=== PATIENT | male | born 1935 | race African-American/Black ===

== ENCOUNTER 2017-01-14 03:42 | Inpatient (IN) | payer MEDICARE, OTHER ==
[2017-01-14] VITALS (18 sets, daily range): BP systolic 75–132; BP diastolic 32–82
[~2017-01-14] VITALS: Ht 177.8 cm; Wt 63.5 kg
[~2017-01-14 03:42] MED LIST: ATIVAN1 MG ORAL; CEFEPIME-D1 GM/50 ML IVPB; CEFTRIAXON1 GM/50 ML IV; CEFTRIAXONE1 G2 IVPB; CLONIDINE HCL0.1 MG PO; CLONIDINE0.1 MG ORAL; DEPAKOTE ER500 MG ORAL; DEPAKOTE250 MG PO; HALOPERIDOL0.5 MG ORAL; HALOPERIDOL1 MG ORAL; HEPARIN1000 UNIT/ SCONJUNC; LEVEMIR FL100 UNIT/1 SUBQ; LEVOFLOXACIN500 MG ORAL; LISINOPRIL5 MG ORAL; LORAZEPAM2 MG/1 M3 IV; LOVENOX10 M4 SUBQ; MIRTAZAPINE7.5 MG ORAL; NAMENDA10 MG ORAL; NORVASC10 MG ORAL; NOVOLIN R100 UNIT/1 SUBQ; PROTONIX40 MG ORAL; TYLENOL650 MG/20. ORAL
--- NOTE | 2017-01-14 03:46 | Emergency Room Report ---
History of Present Illness General Source: Medical Record, EMS Present Illness HPI Patient is an 81-year-old male brought in by EMS after increased difficulty breathing. Patient was noted to have prior history dementia. The patient was noted be full code. He had been noted to be having a low oxygen saturation by facility staff. Patient had been started on supplemental oxygen. Patient was noted to have no prior history of lung problems. His blood sugar was noted to be greater than 260. The patient is normally nonverbal per staff. History is markedly limited by patient's mental status Allergies: Coded Allergies: No Known Allergies (Unverified , 09/13/14) Patient History Past Medical History: see triage record, old chart reviewed Reviewed Nursing Documentation: PMH: Agreed, PSxH: Agreed Nursing Documentation-PMH Hx Cardiac Problems: Yes Hx Hypertension: Yes Hx Pacemaker: Yes - left chest Hx COPD: Yes Hx Diabetes: Yes Hx Cancer: No Hx Gastrointestinal Problems: Yes - Gallstones Hx Neurological Problems: Yes Hx Dementia: Yes Hx Seizures: No - UTI Hx Weakness: Yes Review of Systems All Other Systems: negative except mentioned in HPI Physical Exam Sp02 EP Interpretation: reviewed, normal General Appearance: normal inspection, well appearing, no apparent distress, alert, GCS 15 Head: atraumatic ENT: normal ENT inspection, hearing grossly normal, normal voice Neck: normal inspection, full range of motion, supple, no bony tend Respiratory: normal inspection, lungs clear, normal breath sounds, no respiratory distress, no retraction, no wheezing Cardiovascular #1: regular rate, rhythm, no edema Gastrointestinal: normal inspection, normal bowel sounds, non tender, soft, no guarding, no hernia Genitourinary: no CVA tenderness Musculoskeletal: normal inspection, back normal, normal range of motion Neurologic: normal inspection, alert, responsive, other - nonverbal Psychiatric: mood/affect normal Skin: no rash Procedures Critical Care Time Critical Care Time Patient had a critical medical condition which untreated could potentially result in life or limb threatening injury. Total critical care time excluding procedures approximately 45 minutes. Medical Decision Making Diagnostic Impression: Primary Impression: Severe sepsis Additional Impressions: Pneumonia Dementia Hypernatremia ER Course Patient presented for shortness of breath. Differential included but was not limited to anemia, pneumonia, pneumothorax, myocardial infarction, pericardial effusion, congestive heart failure, acidosis. Because of complexity of patient' s case laboratory testing and imaging studies were ordered.I laboratory testing was notable for initial normal white blood count. Patient's lactic acid level is noted be markedly elevated at 6. The patient's initial troponin was negative. I EKG and rhythm me showed sinus tachycardia with left bundle branch block. Patient was noted to have evidence of sepsis he has 103 temperature. Influenza study was ordered however this is currently pending. Patient started on IV fluids as well as IV antibiotics. Dr. Maik Cannon was contacted for inpatient management Labs Test 01/14/17 03:46 01/14/17 04:05 01/14/17 04:06 01/14/17 06:13 Arterial Blood pH 7.451 (7.350-7.450) Arterial Blood Partial Pressure CO2 24.7 mmHg (35.0-45.0) Arterial Blood Partial Pressure O2 94.7 mmHg (75.0-100.0) Arterial Blood HCO3 16.8 mmol/L (22.0-26.0) Arterial Blood Oxygen Saturation 96.2 % (92.0-98.0) Arterial Blood Base Excess -5.9 Jose David Test Positive Urine Color Ryann Urine Appearance Clear Urine pH 5 (4.5-8.0) Urine Specific [place] 1.020 (1.005-1.035) Urine Protein 1+ (NEGATIVE) Urine Glucose (UA) Negative (NEGATIVE) Urine Ketones Negative (NEGATIVE) Urine Occult Blood Negative (NEGATIVE) Urine Nitrite Negative (NEGATIVE) Urine Bilirubin Negative (NEGATIVE) Urine Ictotest Negative Urine Urobilinogen Normal MG/DL (0.0-1.0) Urine Leukocyte Esterase Negative (NEGATIVE) Urine RBC 0-2 /HPF (0 - 0) Urine WBC 0-2 /HPF (0 - 0) Urine Squamous Epithelial Cells Occasional /LPF Urine Bacteria None /HPF (NONE) Urine Hyaline Casts 5-10 /LPF (NONE) Urine Mucus Moderate /LPF (NONE/OCC) White Blood Count 6.4 K/UL (4.8-10.8) Red Blood Count 4.12 M/UL (4.70-6.10) Hemoglobin 10.4 G/DL (14.2-18.0) Hematocrit 34.5 % (42.0-52.0) Mean Corpuscular Volume 84 FL (80-99) Mean Corpuscular Hemoglobin 25.3 PG (27.0-31.0) Mean Corpuscular Hemoglobin Concent 30.2 G/DL (32.0-36.0) Red Cell Distribution Width 15.7 % (11.6-14.8) Platelet Count 262 K/UL (150-450) Mean Platelet Volume 10.1 FL (6.5-10.1) Neutrophils (%) (Auto) 80.1 % (45.0-75.0) Lymphocytes (%) (Auto) 15.2 % (20.0-45.0) Monocytes (%) (Auto) 4.3 % (1.0-10.0) Eosinophils (%) (Auto) 0.1 % (0.0-3.0) Basophils (%) (Auto) 0.4 % (0.0-2.0) Prothrombin Time 11.5 SEC (9.30-11.50) Prothromb Time International Ratio 1.1 (0.9-1.1) Activated Partial Thromboplast Time 25 SEC (23-33) Sodium Level 167 MMOL/L (136-145) Potassium Level 4.6 MMOL/L (3.5-5.1) Chloride Level 128 MMOL/L (98-107) Carbon Dioxide Level 22 MMOL/L (21-32) Anion Gap 17 mmol/L (5-15) Blood Urea Nitrogen 64 mg/dL (7-18) Creatinine 2.4 MG/DL (0.55-1.30) Estimat Glomerular Filtration Rate mL/min (>60) Glucose Level 159 MG/DL (74-106) Calcium Level 9.3 MG/DL (8.5-10.1) Total Bilirubin 0.3 MG/DL (0.2-1.0) Aspartate Amino Transf (AST/SGOT) 95 U/L (15-37) Alanine Aminotransferase (ALT/SGPT) 30 U/L (12-78) Alkaline Phosphatase 81 U/L (46-116) Total Creatine Kinase 390 U/L (26-308) Creatine Kinase MB 1.3 NG/ML (0.0-3.6) Creatine Kinase MB Relative Index 0.3 Troponin I 0.070 ng/mL (0.000-0.056) Pro-B-Type Natriuretic Peptide 1772 pg/mL (0-125) Total Protein 7.7 G/DL (6.4-8.2) Albumin 2.2 G/DL (3.4-5.0) Globulin 5.5 g/dL Albumin/Globulin Ratio 0.4 (1.0-2.7) Lactic Acid Level 3.00 mmol/L (0.66-2.22) Status: unchanged Disposition: ADMITTED INPATIENT Condition: Critical NachoRobert Jan 14, 2017 03:46
[2017-01-14] MEDS ORDERED: Vancomycin 1gm inj IVPB ONE (03:54)
[2017-01-14] MEDS ORDERED: Cefepime 1gm vial ONE (03:55)
[2017-01-14] MEDS ORDERED: Vancomycin 1 GM in NS 275 ML IV ONE (04:00)
[2017-01-14] MEDS: Cefepime HCl 1 GM in NS 55 ML IV SCH ×2 (04:17→04:49)
[2017-01-14 04:23] LABS: BASOPHILS % (AUTO) 0.4 % (0.0-2.0); EOSINOPHILS % (AUTO) 0.1 % (0.0-3.0); LYMPHOCYTES % (AUTO) 15.2 % (20.0-45.0); MEAN CORPUSCULAR HEMOGLOBIN 25.3 PG (27.0-31.0); MEAN CORPUSCULAR HGB CONC 30.2 G/DL (32.0-36.0); MEAN CORPUSCULAR VOLUME 84 FL (80-99); MEAN PLATELET VOLUME 10.1 FL (6.5-10.1); MONOCYTES % (AUTO) 4.3 % (1.0-10.0); NEUTROPHILS % (AUTO) 80.1 % (45.0-75.0); PLATELET COUNT 262 K/UL (150-450); RED BLOOD COUNT 4.12 M/UL (4.70-6.10); RED CELL DISTRIBUTION WIDTH 15.7 % (11.6-14.8); WHITE BLOOD COUNT 6.4 K/UL (4.8-10.8)
[2017-01-14 04:38] LABS: ABG PCO2 24.7 mmHg (35.0-45.0)
[2017-01-14 04:39] LABS: ABG ALLEN TEST POSITIVE; ABG BASE EXCESS -5.9
[2017-01-14 04:52] LABS: INR 1.1 (0.9-1.1); PROTHROMBIN TIME 11.5 SEC (9.30-11.50)
[2017-01-14 05:00] LABS: ALANINE AMINOTRANSFERASE 30 U/L (12-78); ALBUMIN/GLOBULIN RATIO 0.4 (1.0-2.7); ANION GAP 17 mmol/L (5-15); ASPARTATE AMINO TRANSFERASE 95 U/L (15-37); CALCIUM 9.3 MG/DL (8.5-10.1); CARBON DIOXIDE 22 MMOL/L (21-32); CHLORIDE 128 MMOL/L (98-107); CKMB 1.3 NG/ML (0.0-3.6); CREATININE 2.4 MG/DL (0.55-1.30); POTASSIUM 4.6 MMOL/L (3.5-5.1); TOTAL PROTEIN 7.7 G/DL (6.4-8.2)
[2017-01-14 05:04] LABS: SODIUM 167 MMOL/L (136-145)
[2017-01-14 05:18] LABS: REFLEX LACTIC ACID YES OR NO YES
[2017-01-14] MEDS ORDERED: Acetaminophen 650 MG SUPP RECTAL ONE (05:30)
[2017-01-14 05:37] LABS: APPEARANCE,URINE CLEAR; KETONES,URINE NEGATIVE (NEGATIVE); LEUKOCYTE ESTERASE ,URINE NEGATIVE (NEGATIVE); NITRITE,URINE NEGATIVE (NEGATIVE); PH,URINE 5 (4.5-8.0); PROTEIN,URINE 1+ (NEGATIVE); UROBILINOGEN,URINE NORMAL MG/DL (0.0-1.0)
[2017-01-14 05:43] LABS: ICTOTEST NEGATIVE
[2017-01-14 05:55] LABS: RBC,URINE 0-2 /HPF (0 - 0); SQUAMOUS EPITHELIAL CELL,UR OCCASIONAL /LPF (NONE/OCC); WBC,URINE 0-2 /HPF (0 - 0)
[2017-01-14 05:56] LABS: MUCUS,URINE MODERATE /LPF (NONE/OCC)
[2017-01-14] MEDS ORDERED: TRADJENTA5 MG PO (08:07)
[2017-01-14] MEDS ORDERED: OMEPRAZOLE40 M1 ORAL (08:07)
[2017-01-14] MEDS ORDERED: MULTIVITAMINS1 EAC8 ORAL (08:07)
[2017-01-14] MEDS ORDERED: PRO-STAT LIQUID30 ML ORAL (08:07)
[2017-01-14] MEDS ORDERED: TYLENOL PO (08:07)
[2017-01-14] MEDS ORDERED: [UNRECOGNIZED DRUG - OTHER] (08:07)
[2017-01-14] MEDS ORDERED: FLUOCINONIDE 0.1% TOPIC (08:09)
--- NOTE | 2017-01-14 10:05 | Diagnostic Imaging Report ---
Indication: SOB Technique: One view of the chest Comparison: 09/13/2014 Findings: There is now patchy infiltrate throughout the right lung. Band of atelectasis or scarring is seen in the left lower lung. Left chest pacemaker again demonstrated. Heart size is normal Impression: Bilateral diffuse patchy interstitial and alveolar infiltrate versus edema Left basilar atelectasis Other findings as noted
[2017-01-14] MEDS ORDERED: Acetaminophen 650mg/20.3ml ORAL PRN (11:00)
[2017-01-14 11:44] LABS: PHOSPHORUS 3.2 MG/DL (2.5-4.9)
[2017-01-14 11:53] LABS: HEMOGLOBIN A1C 8.4 % (4.3-6.0)
--- NOTE | 2017-01-14 15:31 | Cardiac Electrophysiology PN ---
Subjective Subjective [id number] Troponin leak,Pacer, HTN, LBBB, Renal failure, Resp failure Objective Last 24 Hour Vital Signs Date Time Temp Pulse Resp B/P (MAP) Pulse Ox O2 Delivery O2 Flow Rate FiO2 01/14/17 15:12 72 18 99 01/14/17 15:00 60 16 112/47 100 Nasal Cannula 2.0 01/14/17 14:00 60 16 93/34 100 Nasal Cannula 2.0 01/14/17 13:00 61 16 99/32 100 Nasal Cannula 2.0 01/14/17 12:48 78 18 99 01/14/17 12:00 61 01/14/17 12:00 98.7 63 16 118/36 100 Nasal Cannula 2.0 01/14/17 11:00 62 16 118/43 100 Nasal Cannula 2.0 01/14/17 10:30 75 18 99 01/14/17 10:00 61 16 91/40 100 Nasal Cannula 2.0 01/14/17 09:00 66 16 112/43 97 Nasal Cannula 2.0 01/14/17 08:30 81 18 98 01/14/17 08:20 98.8 66 16 101/48 97 Nasal Cannula 2.0 01/14/17 08:00 65 01/14/17 07:32 74 21 129/46 99 Bi-pap 40 01/14/17 06:30 40 01/14/17 06:30 78 20 100 Facial 15.0 40 01/14/17 06:28 97.8 81 24 105/52 100 Room Air 01/14/17 06:25 99 18 Room Air 21.0 01/14/17 06:24 97.9 01/14/17 03:50 103.6 93 22 75/40 95 Non-Rebreather 15.0 01/14/17 03:50 97 22 Non-Rebreather 15.0 01/14/17 03:45 103.6 97 75/40 95 Non-Rebreather 15.0 Intake and Output 01/14/17 01/15/17 19:00 07:00 Intake Total 200 ml Output Total 60 ml Balance 140 ml Intake Oral 0 ml IV Total 200 ml Output Urine Total 60 ml Laboratory Tests Test 01/14/17 03:46 01/14/17 04:05 01/14/17 04:06 01/14/17 06:13 Arterial Blood pH 7.451 (7.350-7.450) Arterial Blood Partial Pressure CO2 24.7 mmHg (35.0-45.0) *L Arterial Blood Partial Pressure O2 94.7 mmHg (75.0-100.0) Arterial Blood HCO3 16.8 mmol/L (22.0-26.0) L Arterial Blood Oxygen Saturation 96.2 % (92.0-98.0) Arterial Blood Base Excess -5.9 Jose David Test Positive Urine Color Ryann Urine Appearance Clear Urine pH 5 (4.5-8.0) Urine Specific [place] 1.020 (1.005-1.035) Urine Protein 1+ (NEGATIVE) H Urine Glucose (UA) Negative (NEGATIVE) Urine Ketones Negative (NEGATIVE) Urine Occult Blood Negative (NEGATIVE) Urine Nitrite Negative (NEGATIVE) Urine Bilirubin Negative (NEGATIVE) Urine Ictotest Negative Urine Urobilinogen Normal MG/DL (0.0-1.0) Urine Leukocyte Esterase Negative (NEGATIVE) Urine RBC 0-2 /HPF (0 - 0) H Urine WBC 0-2 /HPF (0 - 0) Urine Squamous Epithelial Cells Occasional /LPF Urine Bacteria None /HPF (NONE) Urine Hyaline Casts 5-10 /LPF (NONE) H Urine Mucus Moderate /LPF (NONE/OCC) H White Blood Count 6.4 K/UL (4.8-10.8) Red Blood Count 4.12 M/UL (4.70-6.10) L Hemoglobin 10.4 G/DL (14.2-18.0) L Hematocrit 34.5 % (42.0-52.0) L Mean Corpuscular Volume 84 FL (80-99) Mean Corpuscular Hemoglobin 25.3 PG (27.0-31.0) L Mean Corpuscular Hemoglobin Concent 30.2 G/DL (32.0-36.0) L Red Cell Distribution Width 15.7 % (11.6-14.8) H Platelet Count 262 K/UL (150-450) Mean Platelet Volume 10.1 FL (6.5-10.1) Neutrophils (%) (Auto) 80.1 % (45.0-75.0) H Lymphocytes (%) (Auto) 15.2 % (20.0-45.0) L Monocytes (%) (Auto) 4.3 % (1.0-10.0) Eosinophils (%) (Auto) 0.1 % (0.0-3.0) Basophils (%) (Auto) 0.4 % (0.0-2.0) Prothrombin Time 11.5 SEC (9.30-11.50) Prothromb Time International Ratio 1.1 (0.9-1.1) Activated Partial Thromboplast Time 25 SEC (23-33) Sodium Level 167 MMOL/L (136-145) *H Potassium Level 4.6 MMOL/L (3.5-5.1) Chloride Level 128 MMOL/L (98-107) H Carbon Dioxide Level 22 MMOL/L (21-32) Anion Gap 17 mmol/L (5-15) H Blood Urea Nitrogen 64 mg/dL (7-18) H Creatinine 2.4 MG/DL (0.55-1.30) H Estimat Glomerular Filtration Rate mL/min (>60) Glucose Level 159 MG/DL (74-106) H Hemoglobin A1c 8.4 % (4.3-6.0) H Lactic Acid Level 6.00 mmol/L (0.66-2.22) H 3.00 mmol/L (0.66-2.22) H Calcium Level 9.3 MG/DL (8.5-10.1) Phosphorus Level 3.2 MG/DL (2.5-4.9) Magnesium Level 2.0 MG/DL (1.8-2.4) Total Bilirubin 0.3 MG/DL (0.2-1.0) Aspartate Amino Transf (AST/SGOT) 95 U/L (15-37) H Alanine Aminotransferase (ALT/SGPT) 30 U/L (12-78) Alkaline Phosphatase 81 U/L (46-116) Total Creatine Kinase 390 U/L (26-308) H Creatine Kinase MB 1.3 NG/ML (0.0-3.6) Creatine Kinase MB Relative Index 0.3 Troponin I 0.070 ng/mL (0.000-0.056) Pro-B-Type Natriuretic Peptide 1772 pg/mL (0-125) H Total Protein 7.7 G/DL (6.4-8.2) Albumin 2.2 G/DL (3.4-5.0) L Globulin 5.5 g/dL Albumin/Globulin Ratio 0.4 (1.0-2.7) L SERGE COVARRUBIAS Jan 14, 2017 15:31
[2017-01-14] MEDS: NovoLOG Insulin Flexpen SUBQ SCH ×2 (17:35→21:12)
--- NOTE | 2017-01-14 20:00 | Consultation ---
DATE OF CONSULTATION: 01/14/2017 CARDIOLOGY CONSULTATION REFERRING PHYSICIAN: Maik Saenz M.D. REASON FOR CONSULTATION: Evaluation of the patient's pacemaker and shortness of breath. HISTORY OF PRESENT ILLNESS: The patient is an 81-year-old gentleman who was brought to the emergency room for increasing difficulty breathing. The patient has history of dementia. No further information is available from the patient. The patient also received oxygen and also was noted to have blood sugar greater than 260. At the time of my evaluation, the patient is in intensive care unit and is not intubated and is not on the pressors. PAST MEDICAL HISTORY: 1. Hypertension. 2. History of pacemaker. 3. COPD. 4. Diabetes. 5. History of gallstones. 6. Dementia. SOCIAL HISTORY: Does not smoke or drink alcohol. FAMILY HISTORY: Noncontributory. REVIEW OF SYSTEMS: Cannot be obtained. PHYSICAL EXAMINATION: VITAL SIGNS: Blood pressure is 112/47, pulse 72, respirations 16, and he is afebrile. HEAD AND NECK: Shows no JVD. LUNGS: Decreased breath sounds. CARDIOVASCULAR: Shows regular S1 and S2 with no gallop. ABDOMEN: Soft. EXTREMITIES: No pitting edema. He has ulcer of his heel. LABORATORY DATA: Show white count of 6.4, hematocrit 10.4, hematocrit 34.5, and platelet count 262. Sodium 167, potassium 4.6, BUN of 64, creatinine 2.4, and glucose of 159. Troponin is 0.7. BNP is 1772. ASSESSMENT AND PLAN: 1. Elevated troponin of 0.07. This is likely due to the patient's renal failure and severe dehydration with BUN and creatinine of 64/2.4, sodium 167. We will hydrate the patient. Repeat troponin as well as repeat the echocardiogram. It is of note the patient's EKG is not interpretable as the patient has underlying complete left bundle-branch block and intermittently is ventricularly pacing. 2. Status post pacemaker. We will find the brand of the pacemaker to interrogate for further evaluation. 3. Severe dehydration and hypernatremia with sodium 167 on D5W. Further evaluation by Dr. Saenz. 4. Renal failure. BUN of 64 and creatinine 2.4. Again, on IV fluids. 5. Dementia. 6. Altered mental status. 7. Elevated BNP. Avoid diureses. Get echocardiogram. Actually, the patient needs hydration. Thank you very much, Dr. Saenz, for allowing me to participate in the care of this patient. Please do not hesitate to contact me for any questions regarding my evaluation. Tenzin Powell M.D. DR: Anson JOB#: [id number] CC:
[2017-01-14] MEDS ORDERED: Depakote 500mg tab ORAL SCH (21:00)
[2017-01-15] VITALS (21 sets, daily range): BP systolic 90–151; BP diastolic 41–86
[2017-01-15 05:12] LABS: MEAN CORPUSCULAR HEMOGLOBIN 25.8 PG (27.0-31.0); MEAN CORPUSCULAR HGB CONC 31.3 G/DL (32.0-36.0); MEAN CORPUSCULAR VOLUME 82 FL (80-99); MEAN PLATELET VOLUME 9.2 FL (6.5-10.1); PLATELET COUNT 176 K/UL (150-450); RED BLOOD COUNT 3.04 M/UL (4.70-6.10); RED CELL DISTRIBUTION WIDTH 15.9 % (11.6-14.8); WHITE BLOOD COUNT 9.8 K/UL (4.8-10.8)
[2017-01-15 05:39] LABS: THYROID STIMULATING HORMONE 7.385 uiU/mL (0.360-3.740)
[2017-01-15 05:59] LABS: ALANINE AMINOTRANSFERASE 18 U/L (12-78); ALBUMIN/GLOBULIN RATIO 0.4 (1.0-2.7); ANION GAP 13 mmol/L (5-15); ASPARTATE AMINO TRANSFERASE 30 U/L (15-37); CARBON DIOXIDE 20 MMOL/L (21-32); CHLORIDE 127 MMOL/L (98-107); CREATININE 1.7 MG/DL (0.55-1.30); POTASSIUM 3.6 MMOL/L (3.5-5.1); SODIUM 160 MMOL/L (136-145); TOTAL PROTEIN 6.3 G/DL (6.4-8.2)
[2017-01-15] MEDS: NovoLOG Insulin Flexpen SUBQ SCH ×4 (06:21→21:27)
[2017-01-15 06:37] LABS: CALCIUM 8.2 MG/DL (8.5-10.1)
[2017-01-15 08:23] LABS: ANISOCYTOSIS 1+; BAND NEUTROPHILS % (MANUAL) 0 % (0-8); BASOPHILS % (MANUAL) 0 % (0-2); EOSINOPHILS % (MANUAL) 0 % (0-3); HYPOCHROMASIA 1+; LYMPHOCYTES % (MANUAL) 16 % (20-45); NEUTROPHILS % (MANUAL) 79 % (45-75); PLATELET ESTIMATE ADEQUATE; PLATELET MORPHOLOGY NORMAL; TOTAL CELLS COUNTED 100
--- NOTE | 2017-01-15 08:57 | Diagnostic Imaging Report ---
APPROVED REPORT CPT Code: 20591 Present Symptoms Shortness of breath Comments: R/O DVT. Technically difficult study due to bilateral contracture. BILATERAL: Imaging reveals a patent deep venous system bilaterally. There is no evidence of thrombus within the femoral, popliteal or tibial segments. The greater saphenous veins are also within normal limits. Doppler indicates normal spontaneous flow within these segments. The mid to distal superficial femoral and tibial veins were not well visualized bilaterally.
[2017-01-15] MEDS ORDERED: Multivitamin w/Minerals tab ORAL SCH (09:00)
[2017-01-15] MEDS ORDERED: Pantoprazole Inj IVP SCH (09:00)
[2017-01-15] MEDS ORDERED: Memantine 10mg tab ORAL SCH (09:00)
[2017-01-15] MEDS: Albuterol/Ipratropium 3ml neb HHN SCH ×2 (09:27→12:58)
--- NOTE | 2017-01-15 12:16 | Wound Care Consultation ---
Wound Assessment Wound Assessment #1: Wound Number: 1 Wound Present on Admission: Yes New Wound: No Status Change of Wound: No Wound Location Body Site Modif: mid Wound Location Body Site: sacral Wound Type: pressure ulcer Ashu Test: Does not Ashu Pressure Ulcer Stage: Unstageable Wound Thickness: Full Thickness Wound Length: 3.5 Wound Width: 3.5 Wound Depth: utd Percent of Wound [place]/Red: 30 Percent of Wound Bed Yellow/Wh: 70 Wound Drainage Description: Serosanguineous Wound Drainage Amount: Moderate Wound Drainage Odor: None/Absent Tissue Surrounding Wound: Macerated Wound General Appearance: Reddened - yellow, Draining Wound Assessment #2: Wound Number: 2 Wound Present on Admission: Yes New Wound: No Status Change of Wound: No Wound Location Body Site Modif: left Wound Location Body Site: sacral Wound Type: pressure ulcer Ashu Test: Does not Ashu Pressure Ulcer Stage: II Wound Thickness: Partial Thickness Wound Length: 0.8 Wound Width: 0.8 Wound Depth: 0.1 Percent of Wound [place]/Red: 100 Wound Drainage Description: Serosanguineous Wound Drainage Amount: Scant Wound Drainage Odor: None/Absent Tissue Surrounding Wound: Intact Wound General Appearance: Reddened, Draining Wound Assessment #3: Wound Number: 3 Wound Present on Admission: Yes New Wound: No Status Change of Wound: No Wound Location Body Site Modif: left, lateral Wound Location Body Site: heel Wound Type: pressure ulcer Ashu Test: Does not Ashu Pressure Ulcer Stage: Unstageable Wound Thickness: Full Thickness Wound Length: 2.0 Wound Width: 2.0 Wound Depth: utd Percent of Wound Black/Brown: 100 Wound Drainage Amount: None Wound Drainage Odor: None/Absent Tissue Surrounding Wound: Indurated Wound General Appearance: Blackened Wound Assessment #4: Wound Number: 4 Wound Present on Admission: Yes New Wound: No Status Change of Wound: No Wound Location Body Site Modif: left Wound Location Body Site: metatarsal head - 1st Wound Type: pressure ulcer Ashu Test: Does not Ashu Pressure Ulcer Stage: IV Wound Thickness: Full Thickness Wound Length: 1.0 Wound Width: 1.0 Wound Depth: 0.1 Percent of Wound [place]/Red: 50 Percent of Wound Bed Yellow/Wh: 50 Wound Drainage Description: Serosanguineous Wound Drainage Amount: Scant Wound Drainage Odor: None/Absent Tissue Surrounding Wound: Erythemic Wound General Appearance: Reddened, Draining Wound Assessment #5: Wound Number: 5 Wound Present on Admission: Yes New Wound: No Status Change of Wound: No Wound Location Body Site Modif: left, medial Wound Location Body Site: malleolus/ankle Wound Type: pressure ulcer Ashu Test: Does not Ashu Pressure Ulcer Stage: Deep Tissue Injury Wound Thickness: Full Thickness Wound Length: 2.5 Wound Width: 2.5 Wound Depth: utd Percent of Wound Purple/Maroon: 100 Wound Drainage Amount: None Wound Drainage Odor: None/Absent Tissue Surrounding Wound: Erythemic Wound General Appearance: Reddened - purple Wound Assessment #6: Wound Number: 6 Wound Present on Admission: Yes New Wound: No Status Change of Wound: No Wound Location Body Site Modif: left, lateral Wound Location Body Site: malleolus/ankle Wound Type: pressure ulcer Ashu Test: Does not Ashu Pressure Ulcer Stage: Deep Tissue Injury Wound Thickness: Full Thickness Wound Length: 2.5 Wound Width: 2.5 Wound Depth: utd Percent of Wound Purple/Maroon: 100 Wound Drainage Amount: None Wound Drainage Odor: None/Absent Tissue Surrounding Wound: Erythemic Wound General Appearance: Reddened - purple Wound Assessment #7: Wound Number: 7 Wound Present on Admission: Yes New Wound: No Status Change of Wound: No Wound Location Body Site Modif: left, mid, lateral Wound Location Body Site: foot Wound Type: pressure ulcer Ashu Test: Does not Ashu Pressure Ulcer Stage: Deep Tissue Injury Wound Thickness: Full Thickness Wound Length: 2.0 Wound Width: 2.5 Wound Depth: utd Percent of Wound Purple/Maroon: 100 Wound Drainage Amount: None Wound Drainage Odor: None/Absent Tissue Surrounding Wound: Intact Wound General Appearance: Reddened - purple Wound Assessment #8: Wound Number: 8 Wound Present on Admission: Yes New Wound: No Status Change of Wound: No Wound Location Body Site Modif: left, medial Wound Location Body Site: heel Wound Type: pressure ulcer Ashu Test: Does not Ashu Pressure Ulcer Stage: Deep Tissue Injury Wound Thickness: Full Thickness Wound Length: 3.0 Wound Width: 3.5 Wound Depth: utd Percent of Wound Purple/Maroon: 100 Wound Drainage Amount: None Wound Drainage Odor: None/Absent Tissue Surrounding Wound: Erythemic Wound General Appearance: Reddened - purple Wound Assessment #9: Wound Number: 9 Wound Present on Admission: Yes New Wound: No Status Change of Wound: No Wound Location Body Site Modif: right Wound Location Body Site: heel Wound Type: pressure ulcer Ashu Test: Does not Ashu Pressure Ulcer Stage: Deep Tissue Injury Wound Thickness: Full Thickness Wound Length: 3.0 Wound Width: 3.5 Wound Depth: utd Percent of Wound Purple/Maroon: 100 Wound Drainage Amount: None Wound Drainage Odor: None/Absent Tissue Surrounding Wound: Intact Wound General Appearance: Reddened - maroon Wound Assessment #10: Wound Number: 10 Wound Present on Admission: Yes New Wound: No Status Change of Wound: No Wound Location Body Site Modif: right Wound Location Body Site: shoulder Wound Type: pressure ulcer Ashu Test: Does not Ashu Pressure Ulcer Stage: Deep Tissue Injury Wound Thickness: Full Thickness Wound Length: 3.5 Wound Width: 3.5 Wound Depth: utd Percent of Wound Black/Brown: 100 Wound Drainage Amount: None Wound Drainage Odor: None/Absent Tissue Surrounding Wound: Erythemic Wound General Appearance: Reddened - maroon Wound Assessment #11: Wound Number: 11 Wound Present on Admission: Yes New Wound: No Status Change of Wound: No Wound Location Body Site Modif: right, lateral Wound Location Body Site: malleolus/ankle Wound Type: pressure ulcer Ashu Test: Does not Ashu Pressure Ulcer Stage: Deep Tissue Injury Wound Thickness: Full Thickness Wound Length: 2.5 Wound Width: 2.5 Wound Depth: utd Percent of Wound Purple/Maroon: 100 Wound Drainage Amount: None Wound Drainage Odor: None/Absent Tissue Surrounding Wound: Erythemic Wound General Appearance: Reddened - purple Wound Comment #1 Mid Sacral unstageable pressure ulcer #2 Left sacral stage II pressure ulcer #3 Left lateral heel unstageable pressure ulcer #4 Left medial Heel DTI pressure ulcer #5 Left 1st metatarsal head stage IV pressure ulcer #6 Left medial Malleolus DTI pressure ulcer #7 Left lateral malleolus DTI pressure ulcer #8 Left Lateral mid foot DTI pressure ulcer #9 Right shoulder DTI pressure ulcer #10 Right lateral malleolus DTI pressure ulcer #11 Right heel DTI pressure ulcer Recommendation -Mid Sacral unstageable pressure ulcer Cleanse with saline, pat dry, apply Triad to periwound, apply Therahoney gel to wound bed, cover with Biatain silicone daily and PRN soiled/dislodged -Left sacral stage II pressure ulcer and Left 1st metatarsal head stage IV pressure ulcer Cleanse with saline, pat dry, apply Triad cream, cover with Bordered gauze daily and PRN soiled/dislodged -Local wound per protocol for DTI pressure ulcers -Low air loss mattress -Keep clean and dry -Optimize nutrition -Turn and reposition -Offload both heels -Heel protector on both heels -Assess and f/u accordingly for any changes JUSTIN BOLANOS RN Jan 15, 2017 12:16
--- NOTE | 2017-01-15 13:48 | Cardiac Electrophysiology PN ---
Assessment/Plan Assessment/Plan 1. Elevated troponin of 0.07. Likely due to renal failure and severe dehydration. Repeat troponin was negative. EF 55%. EKG is not interpretable as the patient has underlying complete left bundle-branch block. 2. Status post pacemaker. We will find the brand of the pacemaker to interrogate for further evaluation. 3. Severe dehydration and hypernatremia with sodium 167 on D5W. Further evaluation by Dr. Saenz. 4. Renal failure. BUN of 64 and creatinine 2.4. Again, on IV fluids getting better. 5. Dementia. 6. Altered mental status. 7. Elevated BNP. PO RN Subjective Subjective In ICU. No events overnight. Objective Last 24 Hour Vital Signs Date Time Temp Pulse Resp B/P (MAP) Pulse Ox O2 Delivery O2 Flow Rate FiO2 01/15/17 13:02 60 18 100 Room Air 21 01/15/17 13:00 63 16 106/41 100 Room Air 01/15/17 12:52 60 16 100 Room Air 21 01/15/17 12:00 97.9 60 12 131/76 96 Room Air 01/15/17 12:00 60 01/15/17 11:00 61 18 123/63 100 Room Air 01/15/17 10:00 62 18 127/69 99 Room Air 01/15/17 09:33 60 15 100 Room Air 21 01/15/17 09:22 61 14 100 Room Air 21 01/15/17 09:20 61 14 Room Air 21 01/15/17 09:00 60 17 134/64 100 Room Air 01/15/17 08:00 98.1 60 19 140/65 100 Room Air 01/15/17 08:00 60 01/15/17 07:40 Nasal Cannula 2.0 28 01/15/17 07:40 99 Nasal Cannula 2.0 28 01/15/17 07:01 62 18 124/86 100 Nasal Cannula 2.0 01/15/17 06:00 67 22 90/45 98 Nasal Cannula 2.0 01/15/17 05:00 63 16 111/60 98 Nasal Cannula 2.0 01/15/17 04:00 98.2 63 17 126/57 100 Nasal Cannula 2.0 01/15/17 04:00 63 01/15/17 03:00 63 16 118/62 98 Nasal Cannula 2.0 01/15/17 02:00 61 17 128/64 100 Nasal Cannula 2.0 01/15/17 01:00 63 16 111/61 100 Nasal Cannula 2.0 01/15/17 00:00 97.9 64 18 90/44 100 Nasal Cannula 2.0 01/14/17 23:00 65 16 100/51 100 Nasal Cannula 2.0 01/14/17 22:00 62 16 116/60 100 Nasal Cannula 2.0 01/14/17 21:00 61 17 111/52 100 Nasal Cannula 2.0 01/14/17 20:00 61 01/14/17 20:00 98.5 60 17 132/60 100 Nasal Cannula 2.0 01/14/17 19:52 Nasal Cannula 2.0 28 01/14/17 19:51 100 Nasal Cannula 2.0 28 01/14/17 19:00 60 16 105/56 100 Nasal Cannula 2.0 01/14/17 18:00 60 16 113/82 100 Nasal Cannula 2.0 01/14/17 17:00 60 16 110/65 100 Nasal Cannula 2.0 01/14/17 16:00 60 01/14/17 16:00 98.4 60 16 101/67 100 Nasal Cannula 2.0 01/14/17 15:12 72 18 99 01/14/17 15:00 60 16 112/47 100 Nasal Cannula 2.0 01/14/17 14:00 60 16 93/34 100 Nasal Cannula 2.0 Intake and Output 01/15/17 01/16/17 19:00 07:00 Intake Total 600 ml Output Total 220 ml Balance 380 ml IV Total 600 ml Output Urine Total 220 ml # Bowel Movements 1 Laboratory Tests Test 01/15/17 04:10 White Blood Count 9.8 K/UL (4.8-10.8) # Red Blood Count 3.04 M/UL (4.70-6.10) L Hemoglobin 7.9 G/DL (14.2-18.0) L Hematocrit 25.1 % (42.0-52.0) L Mean Corpuscular Volume 82 FL (80-99) Mean Corpuscular Hemoglobin 25.8 PG (27.0-31.0) L Mean Corpuscular Hemoglobin Concent 31.3 G/DL (32.0-36.0) L Red Cell Distribution Width 15.9 % (11.6-14.8) H Platelet Count 176 K/UL (150-450) Mean Platelet Volume 9.2 FL (6.5-10.1) Neutrophils (%) (Auto) % (45.0-75.0) Lymphocytes (%) (Auto) % (20.0-45.0) Monocytes (%) (Auto) % (1.0-10.0) Eosinophils (%) (Auto) % (0.0-3.0) Basophils (%) (Auto) % (0.0-2.0) Differential Total Cells Counted 100 Neutrophils % (Manual) 79 % (45-75) H Lymphocytes % (Manual) 16 % (20-45) L Monocytes % (Manual) 5 % (1-10) Eosinophils % (Manual) 0 % (0-3) Basophils % (Manual) 0 % (0-2) Band Neutrophils 0 % (0-8) Platelet Estimate Adequate Platelet Morphology Normal Hypochromasia 1+ Anisocytosis 1+ Sodium Level 160 MMOL/L (136-145) H Potassium Level 3.6 MMOL/L (3.5-5.1) Chloride Level 127 MMOL/L (98-107) H Carbon Dioxide Level 20 MMOL/L (21-32) L Anion Gap 13 mmol/L (5-15) Blood Urea Nitrogen 52 mg/dL (7-18) H Creatinine 1.7 MG/DL (0.55-1.30) H Estimat Glomerular Filtration Rate mL/min (>60) Glucose Level 189 MG/DL (74-106) H Lactic Acid Level 0.90 mmol/L (0.66-2.22) Calcium Level 8.2 MG/DL (8.5-10.1) L Total Bilirubin 0.3 MG/DL (0.2-1.0) Aspartate Amino Transf (AST/SGOT) 30 U/L (15-37) Alanine Aminotransferase (ALT/SGPT) 18 U/L (12-78) Alkaline Phosphatase 59 U/L (46-116) Troponin I 0.022 ng/mL (0.000-0.056) Pro-B-Type Natriuretic Peptide 2728 pg/mL (0-125) H Total Protein 6.3 G/DL (6.4-8.2) L Albumin 1.7 G/DL (3.4-5.0) L Globulin 4.6 g/dL Albumin/Globulin Ratio 0.4 (1.0-2.7) L Thyroid Stimulating Hormone (TSH) 7.385 uiU/mL (0.360-3.740) Free Thyroxine 1.08 NG/DL (0.10-1.46) Microbiology Date/Time Source Procedure Growth Status 01/14/17 04:06 Blood Blood Culture - Preliminary NO GROWTH AFTER 24 HOURS Resulted 01/14/17 04:06 Blood Blood Culture - Preliminary NO GROWTH AFTER 24 HOURS Resulted 01/14/17 15:30 Nasal Nares Influenza Types A,B Antigen (LEDA) - Final Complete 01/14/17 04:24 Nasal Nares MRSA Culture - Final Staphylococcus Aureus - Mrsa Complete Objective HEAD AND NECK: Shows no JVD. LUNGS: Decreased breath sounds. CARDIOVASCULAR: Shows regular S1 and S2 with no gallop. ABDOMEN: Soft. EXTREMITIES: No pitting edema. He has ulcer of his heel. SERGE COVARRUBIAS Jan 15, 2017 13:48
--- NOTE | 2017-01-15 15:09 | Nephrology Progress Note ---
Assessment/Plan Problem List: (1) Renal failure (ARF), acute on chronic (2) Hypothyroidism (3) CHF (congestive heart failure) (4) Dehydration (5) Diabetes (6) Dementia (7) Hypernatremia (8) Pneumonia (9) Altered mental status (10) Anemia Plan H&P dictated - [id number] Subjective ROS Limited/Unobtainable: Yes Subjective In bed, in no apparent distress Objective Objective Last 24 Hour Vital Signs Date Time Temp Pulse Resp B/P (MAP) Pulse Ox O2 Delivery O2 Flow Rate FiO2 01/15/17 14:00 67 16 122/63 100 Room Air 01/15/17 13:02 60 18 100 Room Air 21 01/15/17 13:00 63 16 106/41 100 Room Air 01/15/17 12:52 60 16 100 Room Air 21 01/15/17 12:00 97.9 60 12 131/76 96 Room Air 01/15/17 12:00 60 01/15/17 11:00 61 18 123/63 100 Room Air 01/15/17 10:00 62 18 127/69 99 Room Air 01/15/17 09:33 60 15 100 Room Air 21 01/15/17 09:22 61 14 100 Room Air 21 01/15/17 09:20 61 14 Room Air 21 01/15/17 09:00 60 17 134/64 100 Room Air 01/15/17 08:00 98.1 60 19 140/65 100 Room Air 01/15/17 08:00 60 01/15/17 07:40 Nasal Cannula 2.0 28 01/15/17 07:40 99 Nasal Cannula 2.0 28 01/15/17 07:01 62 18 124/86 100 Nasal Cannula 2.0 01/15/17 06:00 67 22 90/45 98 Nasal Cannula 2.0 01/15/17 05:00 63 16 111/60 98 Nasal Cannula 2.0 01/15/17 04:00 98.2 63 17 126/57 100 Nasal Cannula 2.0 01/15/17 04:00 63 01/15/17 03:00 63 16 118/62 98 Nasal Cannula 2.0 01/15/17 02:00 61 17 128/64 100 Nasal Cannula 2.0 01/15/17 01:00 63 16 111/61 100 Nasal Cannula 2.0 01/15/17 00:00 97.9 64 18 90/44 100 Nasal Cannula 2.0 01/14/17 23:00 65 16 100/51 100 Nasal Cannula 2.0 01/14/17 22:00 62 16 116/60 100 Nasal Cannula 2.0 01/14/17 21:00 61 17 111/52 100 Nasal Cannula 2.0 01/14/17 20:00 61 01/14/17 20:00 98.5 60 17 132/60 100 Nasal Cannula 2.0 01/14/17 19:52 Nasal Cannula 2.0 28 01/14/17 19:51 100 Nasal Cannula 2.0 28 01/14/17 19:00 60 16 105/56 100 Nasal Cannula 2.0 01/14/17 18:00 60 16 113/82 100 Nasal Cannula 2.0 01/14/17 17:00 60 16 110/65 100 Nasal Cannula 2.0 01/14/17 16:00 60 01/14/17 16:00 98.4 60 16 101/67 100 Nasal Cannula 2.0 01/14/17 15:12 72 18 99 Intake and Output 01/15/17 01/16/17 19:00 07:00 Intake Total 600 ml Output Total 270 ml Balance 330 ml IV Total 600 ml Output Urine Total 270 ml # Bowel Movements 1 Laboratory Tests 01/15/17 04:10: White Blood Count 9.8#, Red Blood Count 3.04L, Hemoglobin 7.9L, Hematocrit 25.1L , Mean Corpuscular Volume 82, Mean Corpuscular Hemoglobin 25.8L, Mean Corpuscular Hemoglobin Concent 31.3L, Red Cell Distribution Width 15.9H, Platelet Count 176, Mean Platelet Volume 9.2, Neutrophils (%) (Auto) , Lymphocytes (%) (Auto) , Monocytes (%) (Auto) , Eosinophils (%) (Auto) , Basophils (%) (Auto) , Differential Total Cells Counted 100, Neutrophils % ( Manual) 79H, Lymphocytes % (Manual) 16L, Monocytes % (Manual) 5, Eosinophils % ( Manual) 0, Basophils % (Manual) 0, Band Neutrophils 0, Platelet Estimate Adequate, Platelet Morphology Normal, Hypochromasia 1+, Anisocytosis 1+, Sodium Level 160H, Potassium Level 3.6, Chloride Level 127H, Carbon Dioxide Level 20L, Anion Gap 13, Blood Urea Nitrogen 52H, Creatinine 1.7H, Estimat Glomerular Filtration Rate , Glucose Level 189H, Lactic Acid Level 0.90, Calcium Level 8.2L , Total Bilirubin 0.3, Aspartate Amino Transf (AST/SGOT) 30, Alanine Aminotransferase (ALT/SGPT) 18, Alkaline Phosphatase 59, Troponin I 0.022, Pro-B -Type Natriuretic Peptide 2728H, Total Protein 6.3L, Albumin 1.7L, Globulin 4.6 , Albumin/Globulin Ratio 0.4L, Thyroid Stimulating Hormone (TSH) 7.385H, Free Thyroxine 1.08 Height (Feet): 5 Height (Inches): 10.00 Weight (Pounds): 140 General Appearance: no apparent distress, agitated, combative EENT: normal ENT inspection Neck: non-tender Cardiovascular: regular rhythm Respiratory/Chest: no respiratory distress Abdomen: non tender, soft, no organomegaly Extremities: non-tender, other - contractures Neurologic: disoriented Kassandra Matos N.P. Jan 15, 2017 15:09
--- NOTE | 2017-01-15 15:14 | Cardiology Report ---
APPROVED REPORT EKG Measurement Heart [id number] Normal sinus rhythm Left bundle branch block Abnormal ECG
[2017-01-15] MEDS ORDERED: LORazepam Inj 2mg/ml 1ml IV PRN (15:15)
[2017-01-15] MEDS ORDERED: Epogen (for non ESRD use) SUBQ SCH ×2 (21:00)
[2017-01-15] MEDS: Depakote 500mg tab ORAL SCH (21:01)
[2017-01-15] MEDS ORDERED: Acetaminophen 650mg/20.3ml ORAL PRN (23:00)
--- NOTE | 2017-01-16 | HX and Phyl Repo 2 Sig ---
DATE OF ADMISSION: 01/14/2017 INTERNAL MEDICINE HISTORY AND PHYSICAL HISTORY OF PRESENT ILLNESS: The patient is an 81-year-old, male with a past medical history significant for hypertension, hypothyroidism, dementia, status post pacemaker, diabetes, history of COPD, and gallstones who [facility] of worsening shortness of breath as well as increase in altered mental status. The patient was evaluated in the emergency room and transferred to the intensive care unit for further evaluation. The patient is mainly in bed at this time, confused, combative, but in no apparent distress. PAST MEDICAL HISTORY: Significant for hypertension, COPD, diabetes, dementia, hypothyroidism, and history of pacemaker placement. ALLERGIES: He has no known allergies. MEDICATIONS: Include acetaminophen 350 mg p.o. q.4 h. p.r.n., Pro-Stat liquid 45 mL p.o. t.i.d., amlodipine 10 mg p.o. daily, clonidine 0.1 mg p.o. q.6 h. p.r.n. systolic blood pressure greater than 160, Depakote 250 mg p.o. b.i.d., Haldol 10 mg p.o. q.6 h. p.r.n., heparin 5000 units subcutaneous q.12 h., Regular insulin q.a.c. and at bedtime with sliding scale, Tradjenta 5 mg p.o. daily, lisinopril 5 mg p.o. b.i.d., Namenda 10 mg p.o. daily, mirtazapine 15 mg p.o. at bedtime, multivitamin one tab p.o. daily, and Protonix 40 mg p.o. daily. SOCIAL HISTORY: No history of smoking, alcohol use, or illicit drug use. The patient resides in [facility]. REVIEW OF SYSTEMS: Unobtainable at this time due to the patient's altered mental status. PHYSICAL EXAMINATION: GENERAL: This is an 81-year-old male, in no apparent distress, confused. VITAL SIGNS: Blood pressure 122/63, heart rate is 67, respiratory rate 16, temperature is 97.9, and O2 saturation is 100% on room air. HEENT: Head is normocephalic and atraumatic. NECK: Supple. Trachea midline. LUNGS: Clear to auscultation bilaterally. No wheezing. No crackles. CARDIOVASCULAR: Regular rate and rhythm. ABDOMEN: Soft, nontender, and nondistended. EXTREMITIES: No edema. No cyanosis. No clubbing. LABORATORY DATA: CBC white count 9.8, hemoglobin 7.9, hematocrit 25.1, and platelet count of 176. BMP sodium 160, potassium 3.6, chloride 127, bicarbonate 20, BUN 52, creatinine 1.7, and blood glucose is 189. BNP is 2728. TSH is 7.385. RADIOLOGIC FINDING: Chest x-ray, impression bilateral diffuse patchy interstitial and alveolar infiltrate versus edema. Left basilar atelectasis. Venous duplex negative. ASSESSMENT: 1. Respiratory distress. 2. Acute renal failure on chronic kidney disease. 3. Dehydration. 4. Anemia. 5. Hypernatremia. 6. Congestive heart failure. 7. Hypothyroidism. 8. Status post pacemaker. 9. Dementia. 10. Diabetes. PLAN: We will continue treatment plan as it is currently. We will follow up with recommendations from consults. We will monitor electrolytes and correct as needed. We will continue D5W at 125 mL/hour to correct hypernatremia. We would do a swallow evaluation. We will monitor the patient's neurological status. We will add treatment plan. We will monitor H and H and transfuse as needed. We will monitor patient's overall response to treatment. Maik Saenz M.D. Kassandra Matos DR: HEBER JOB#: [id number] CC: MARI
[2017-01-16] MEDS: LORazepam Inj 2mg/ml 1ml IV PRN ×2 (00:26→18:39)
--- NOTE | 2017-01-16 01:15 | History and Physical Report ---
DATE OF ADMISSION: 01/14/2017 HISTORY OF PRESENT ILLNESS: The patient is an elderly 81-year-old male, who came to the emergency room for having a septic shock, dehydration, anemia, and aspiration pneumonia. The patient was hypotensive, blood pressure about 70s, altered, and unresponsive. Elevated white count. The patient was admitted in the ICU. The patient was given IV fluid, IV antibiotics, and resuscitated. The patient is currently awake, confused, doing a bit better, he is off the pressors and he is still going to continue antibiotics. PAST MEDICAL HISTORY: Significant for diabetes, hypertension, dementia, degenerative arthritis, and depression. ALLERGIES: No know allergies. SOCIAL HISTORY: The patient lives at [facility], mostly bedbound. FAMILY HISTORY: Noncontributory. REVIEW OF SYSTEMS: Generalized weakness, GERD, fatigue, confusion, and weight loss for the last few months. PHYSICAL EXAMINATION: GENERAL: This is an elderly male, who is currently awake. VITAL SIGNS: Blood pressure is 145/70, pulse 60, respirations 18, no fever. SKIN: Good skin turgor. CHEST: Bilaterally few crackles. CARDIOVASCULAR: Irregular rhythm. No gallop. No murmur. ABDOMEN: Soft. EXTREMITIES: No CCE. NEUROLOGICAL: Confusion, bedbound, and generalized weakness. ASSESSMENT AND PLAN: 1. Sepsis. 2. Dehydration. 3. Dementia. 4. Aspiration pneumonia. 5. Diabetes. 6. Failure to thrive. 7. Weight loss. We will continue IV antibiotics. Continue IV fluids. Pureed diet. Dietary consult. Follow up the lab. Consider LTAC evaluation. Jama Carvajal M.D. DR: Sunny JOB#: [id number] CC:
[2017-01-16] MEDS: Albuterol/Ipratropium 3ml neb HHN SCH ×4 (01:47→19:26)
[2017-01-16 04:00] VITALS: BP 132/56
[2017-01-16 05:23] LABS: MEAN CORPUSCULAR HEMOGLOBIN 25.8 PG (27.0-31.0); MEAN CORPUSCULAR HGB CONC 30.7 G/DL (32.0-36.0); MEAN CORPUSCULAR VOLUME 84 FL (80-99); MEAN PLATELET VOLUME 8.3 FL (6.5-10.1); PLATELET COUNT 193 K/UL (150-450); RED BLOOD COUNT 2.62 M/UL (4.70-6.10); RED CELL DISTRIBUTION WIDTH 15.8 % (11.6-14.8); WHITE BLOOD COUNT 10.6 K/UL (4.8-10.8)
[2017-01-16 05:53] LABS: BAND NEUTROPHILS % (MANUAL) 0 % (0-8); BASOPHILS % (MANUAL) 0 % (0-2); EOSINOPHILS % (MANUAL) 2 % (0-3); LYMPHOCYTES % (MANUAL) 11 % (20-45); NEUTROPHILS % (MANUAL) 83 % (45-75); PLATELET ESTIMATE ADEQUATE; PLATELET MORPHOLOGY NORMAL; TOTAL CELLS COUNTED 100
[2017-01-16 06:22] LABS: ANION GAP 13 mmol/L (5-15); CALCIUM 8.3 MG/DL (8.5-10.1); CARBON DIOXIDE 19 MMOL/L (21-32); CHLORIDE 119 MMOL/L (98-107); CREATININE 1.5 MG/DL (0.55-1.30); POTASSIUM 3.6 MMOL/L (3.5-5.1); SODIUM 151 MMOL/L (136-145)
[2017-01-16] MEDS: Levothyroxine 25mcg tab ORAL SCH (06:23)
[2017-01-16] MEDS: NovoLOG Insulin Flexpen SUBQ SCH ×4 (06:25→20:15)
[2017-01-16] MEDS ORDERED: Levothyroxine 25mcg tab ORAL SCH (06:30)
[2017-01-16 07:49] LABS: OTHERS PATHOLOGIST COMMENT
[2017-01-16 07:50] VITALS: BP 153/86
[2017-01-16] MEDS: Multivitamin w/Minerals tab ORAL SCH (08:47)
[2017-01-16] MEDS: Pantoprazole Inj IVP SCH (08:47)
[2017-01-16] MEDS: Memantine 10mg tab ORAL SCH (08:48)
[2017-01-16] MEDS: Nephrovite tab (Rena-Vite) ORAL SCH (08:48)
[2017-01-16] MEDS ORDERED: Nephrovite tab (Rena-Vite) ORAL SCH (09:00)
[2017-01-16 09:47] LABS: BASOPHILS % (AUTO) 0.9 % (0.0-2.0); EOSINOPHILS % (AUTO) 0.8 % (0.0-3.0); LYMPHOCYTES % (AUTO) 12.1 % (20.0-45.0); MEAN CORPUSCULAR HEMOGLOBIN 23.3 PG (27.0-31.0); MEAN CORPUSCULAR HGB CONC 27.7 G/DL (32.0-36.0); MEAN CORPUSCULAR VOLUME 84 FL (80-99); MONOCYTES % (AUTO) 3.4 % (1.0-10.0); NEUTROPHILS % (AUTO) 82.7 % (45.0-75.0); PLATELET COUNT 116 K/UL (150-450); RED BLOOD COUNT 3.83 M/UL (4.70-6.10); RED CELL DISTRIBUTION WIDTH 15.6 % (11.6-14.8); WHITE BLOOD COUNT 7.4 K/UL (4.8-10.8)
[2017-01-16 12:00] VITALS: BP 150/72
--- NOTE | 2017-01-16 15:31 | Cardiac Electrophysiology PN ---
Assessment/Plan Assessment/Plan 1. Elevated troponin of 0.07. Likely due to renal failure and severe dehydration. Repeat troponin was negative. EF 55%. EKG is SR with complete left bundle-branch block. 2. Status post pacemaker. Brand of the pacemaker still not clear. Per family it hasnt been checked for 7 years! 3. Severe dehydration and hypernatremia with sodium 167 on D5W. Further evaluation by Dr. Saenz. 4. Renal failure. BUN of 64 and creatinine 2.4. Again, on IV fluids getting better. 5. Dementia. 6. Altered mental status. 7. Elevated BNP. DW RN and son Subjective Subjective In ICU. Agitated earlier. Son and RN at bedside. Objective Last 24 Hour Vital Signs Date Time Temp Pulse Resp B/P (MAP) Pulse Ox O2 Delivery O2 Flow Rate FiO2 01/16/17 13:35 77 18 100 Room Air 01/16/17 13:25 71 18 100 Room Air 01/16/17 12:15 71 01/16/17 12:00 97.8 72 18 150/72 100 Room Air 01/16/17 07:50 98.0 74 16 153/86 100 Room Air 01/16/17 07:48 74 16 100 Room Air 01/16/17 07:46 74 01/16/17 07:38 76 16 100 Room Air 01/16/17 07:36 Room Air 01/16/17 07:35 100 Room Air 01/16/17 04:00 98.2 65 16 132/56 96 Room Air 01/16/17 03:44 75 01/16/17 01:56 80 18 98 Room Air 21 01/16/17 01:47 78 18 98 Room Air 21 01/16/17 00:00 75 01/15/17 23:52 98.4 76 16 151/76 99 Room Air 01/15/17 20:00 98.1 65 17 145/77 96 Room Air 01/15/17 19:48 Room Air 01/15/17 19:48 Room Air 01/15/17 19:48 Room Air 01/15/17 19:47 98 Room Air 01/15/17 19:42 60 01/15/17 18:34 73 01/15/17 18:00 62 17 127/68 100 Room Air 01/15/17 17:00 66 16 150/66 100 Room Air 01/15/17 16:00 97.9 65 16 142/65 100 Room Air 01/15/17 16:00 65 Laboratory Tests Test 01/16/17 03:00 01/16/17 09:30 White Blood Count 10.6 K/UL (4.8-10.8) 7.4 K/UL (4.8-10.8) Red Blood Count 2.62 M/UL (4.70-6.10) L 3.83 M/UL (4.70-6.10) L Hemoglobin 6.8 G/DL (14.2-18.0) *L 8.9 G/DL (14.2-18.0) #L Hematocrit 22.0 % (42.0-52.0) L 32.2 % (42.0-52.0) #L Mean Corpuscular Volume 84 FL (80-99) 84 FL (80-99) Mean Corpuscular Hemoglobin 25.8 PG (27.0-31.0) L 23.3 PG (27.0-31.0) L Mean Corpuscular Hemoglobin Concent 30.7 G/DL (32.0-36.0) L 27.7 G/DL (32.0-36.0) L Red Cell Distribution Width 15.8 % (11.6-14.8) H 15.6 % (11.6-14.8) H Platelet Count 193 K/UL (150-450) 116 K/UL (150-450) L Mean Platelet Volume 8.3 FL (6.5-10.1) 7.0 FL (6.5-10.1) Neutrophils (%) (Auto) % (45.0-75.0) 82.7 % (45.0-75.0) H Lymphocytes (%) (Auto) % (20.0-45.0) 12.1 % (20.0-45.0) L Monocytes (%) (Auto) % (1.0-10.0) 3.4 % (1.0-10.0) Eosinophils (%) (Auto) % (0.0-3.0) 0.8 % (0.0-3.0) Basophils (%) (Auto) % (0.0-2.0) 0.9 % (0.0-2.0) Differential Total Cells Counted 100 Neutrophils % (Manual) 83 % (45-75) H Lymphocytes % (Manual) 11 % (20-45) L Monocytes % (Manual) 4 % (1-10) Eosinophils % (Manual) 2 % (0-3) Basophils % (Manual) 0 % (0-2) Band Neutrophils 0 % (0-8) Platelet Estimate Adequate Platelet Morphology Normal Sodium Level 151 MMOL/L (136-145) H Potassium Level 3.6 MMOL/L (3.5-5.1) Chloride Level 119 MMOL/L (98-107) H Carbon Dioxide Level 19 MMOL/L (21-32) L Anion Gap 13 mmol/L (5-15) Blood Urea Nitrogen 33 mg/dL (7-18) H Creatinine 1.5 MG/DL (0.55-1.30) H Estimat Glomerular Filtration Rate mL/min (>60) Glucose Level 245 MG/DL (74-106) H Calcium Level 8.3 MG/DL (8.5-10.1) L Pro-B-Type Natriuretic Peptide 4680 pg/mL (0-125) H Microbiology Date/Time Source Procedure Growth Status 01/14/17 04:06 Blood Blood Culture - Preliminary NO GROWTH AFTER 48 HOURS Resulted 01/14/17 04:06 Blood Blood Culture - Preliminary NO GROWTH AFTER 48 HOURS Resulted 01/14/17 15:30 Nasal Nares Influenza Types A,B Antigen (LEDA) - Final Complete 01/14/17 04:24 Nasal Nares MRSA Culture - Final Staphylococcus Aureus - Mrsa Complete 01/14/17 04:24 Rectum VRE Culture - Final Enterococcus Faecalis - Vre Complete Objective HEAD AND NECK: Shows no JVD. LUNGS: Decreased breath sounds. CARDIOVASCULAR: Regular S1 and S2 with no gallop. ABDOMEN: Soft. EXTREMITIES: No pitting edema. He has ulcer of his heel. SERGE COVARRUBIAS Jan 16, 2017 15:31
[2017-01-16 15:50] VITALS: BP 123/70
--- NOTE | 2017-01-16 16:02 | Infectious Diseases Prog Note ---
Assessment/Plan Problems: (1) Aspiration pneumonia Assessment & Plan: will start zosyn and vancomycin, monitor CXR, recommend swallow eval (2) Severe sepsis Assessment & Plan: with shock, S/P pressors, will start vancomycin and zosyn , repeat blood culture, continue hydration , monitor culture (3) Respiratory failure Assessment & Plan: due to the above, improving, continue oxygen, monitor CXR (4) Diabetes Assessment & Plan: recommend tight glycemic control to keep blood glucose between 80-120 (5) Altered mental status Assessment & Plan: due to sepsis, improving, monitor in tele, consider neuro consult (6) Renal failure (ARF), acute on chronic Assessment & Plan: due to septic shock, continue hydration, monitor urine output, and renal function Subjective Allergies: Coded Allergies: No Known Allergies (Unverified , 09/13/14) Objective Vital Signs Last 24 Hour Vital Signs Date Time Temp Pulse Resp B/P (MAP) Pulse Ox O2 Delivery O2 Flow Rate FiO2 01/16/17 15:50 97.2 72 16 123/70 100 Room Air 01/16/17 13:35 77 18 100 Room Air 01/16/17 13:25 71 18 100 Room Air 01/16/17 12:15 71 01/16/17 12:00 97.8 72 18 150/72 100 Room Air 01/16/17 07:50 98.0 74 16 153/86 100 Room Air 01/16/17 07:48 74 16 100 Room Air 01/16/17 07:46 74 01/16/17 07:38 76 16 100 Room Air 01/16/17 07:36 Room Air 01/16/17 07:35 100 Room Air 01/16/17 04:00 98.2 65 16 132/56 96 Room Air 01/16/17 03:44 75 01/16/17 01:56 80 18 98 Room Air 21 01/16/17 01:47 78 18 98 Room Air 21 01/16/17 00:00 75 01/15/17 23:52 98.4 76 16 151/76 99 Room Air 01/15/17 20:00 98.1 65 17 145/77 96 Room Air 01/15/17 19:48 Room Air 01/15/17 19:48 Room Air 01/15/17 19:48 Room Air 01/15/17 19:47 98 Room Air 01/15/17 19:42 60 01/15/17 18:34 73 01/15/17 18:00 62 17 127/68 100 Room Air 01/15/17 17:00 66 16 150/66 100 Room Air 01/15/17 16:00 97.9 65 16 142/65 100 Room Air 01/15/17 16:00 65 Height (Feet): 5 Height (Inches): 10.00 Weight (Pounds): 140 Microbiology Date/Time Source Procedure Growth Status 01/14/17 04:06 Blood Blood Culture - Preliminary NO GROWTH AFTER 48 HOURS Resulted 01/14/17 04:06 Blood Blood Culture - Preliminary NO GROWTH AFTER 48 HOURS Resulted 01/14/17 15:30 Nasal Nares Influenza Types A,B Antigen (LEDA) - Final Complete 01/14/17 04:24 Nasal Nares MRSA Culture - Final Staphylococcus Aureus - Mrsa Complete 01/14/17 04:24 Rectum VRE Culture - Final Enterococcus Faecalis - Vre Complete Laboratory Tests Test 01/16/17 03:00 01/16/17 09:30 White Blood Count 10.6 K/UL (4.8-10.8) 7.4 K/UL (4.8-10.8) Red Blood Count 2.62 M/UL (4.70-6.10) L 3.83 M/UL (4.70-6.10) L Hemoglobin 6.8 G/DL (14.2-18.0) *L 8.9 G/DL (14.2-18.0) #L Hematocrit 22.0 % (42.0-52.0) L 32.2 % (42.0-52.0) #L Mean Corpuscular Volume 84 FL (80-99) 84 FL (80-99) Mean Corpuscular Hemoglobin 25.8 PG (27.0-31.0) L 23.3 PG (27.0-31.0) L Mean Corpuscular Hemoglobin Concent 30.7 G/DL (32.0-36.0) L 27.7 G/DL (32.0-36.0) L Red Cell Distribution Width 15.8 % (11.6-14.8) H 15.6 % (11.6-14.8) H Platelet Count 193 K/UL (150-450) 116 K/UL (150-450) L Mean Platelet Volume 8.3 FL (6.5-10.1) 7.0 FL (6.5-10.1) Neutrophils (%) (Auto) % (45.0-75.0) 82.7 % (45.0-75.0) H Lymphocytes (%) (Auto) % (20.0-45.0) 12.1 % (20.0-45.0) L Monocytes (%) (Auto) % (1.0-10.0) 3.4 % (1.0-10.0) Eosinophils (%) (Auto) % (0.0-3.0) 0.8 % (0.0-3.0) Basophils (%) (Auto) % (0.0-2.0) 0.9 % (0.0-2.0) Differential Total Cells Counted 100 Neutrophils % (Manual) 83 % (45-75) H Lymphocytes % (Manual) 11 % (20-45) L Monocytes % (Manual) 4 % (1-10) Eosinophils % (Manual) 2 % (0-3) Basophils % (Manual) 0 % (0-2) Band Neutrophils 0 % (0-8) Platelet Estimate Adequate Platelet Morphology Normal Sodium Level 151 MMOL/L (136-145) H Potassium Level 3.6 MMOL/L (3.5-5.1) Chloride Level 119 MMOL/L (98-107) H Carbon Dioxide Level 19 MMOL/L (21-32) L Anion Gap 13 mmol/L (5-15) Blood Urea Nitrogen 33 mg/dL (7-18) H Creatinine 1.5 MG/DL (0.55-1.30) H Estimat Glomerular Filtration Rate mL/min (>60) Glucose Level 245 MG/DL (74-106) H Calcium Level 8.3 MG/DL (8.5-10.1) L Pro-B-Type Natriuretic Peptide 4680 pg/mL (0-125) H Current Medications Medications (Trade) Dose Ordered Sig/Huma Route PRN Reason Start Time Stop Time Status Last Admin Dose Admin Acetaminophen (Tylenol) 650 mg Q4H PRN ORAL FEVER 01/15/17 23:00 02/13/17 10:59 Albuterol/ Ipratropium (Albuterol/ Ipratropium) 3 ml Q6HRT HHN 01/16/17 01:00 01/20/17 07:59 01/16/17 13:29 Dextrose 1,000 ml @ 125 mls/hr Q8H IV 01/15/17 20:00 02/14/17 19:59 01/16/17 10:34 Dextrose (Dextrose 50%) STAT PRN IV Hypoglycemia 01/16/17 11:00 02/13/17 10:59 Divalproex Sodium (Depakote) 250 mg BID ORAL 01/16/17 09:00 02/13/17 17:59 01/16/17 08:47 Divalproex Sodium (Depakote) 500 mg QHS ORAL 01/15/17 21:00 02/13/17 20:59 01/15/17 21:01 Epoetin Norris (Procrit (for non ESRD use)) 5,000 units FRI-FRI-FRI SUBQ 01/15/17 21:00 02/14/17 20:59 01/15/17 21:25 Insulin Aspart (NovoLOG) BEFORE MEALS AND HS SUBQ 01/15/17 21:00 02/13/17 16:29 01/16/17 12:41 Levothyroxine Sodium (Synthroid) 25 mcg DAILY@0630 ORAL 01/16/17 06:30 02/15/17 06:29 01/16/17 06:23 Lorazepam (Ativan 2mg/ml 1ml) 1 mg Q6H PRN IV For Anxiety 01/15/17 21:15 01/22/17 15:14 01/16/17 00:26 Memantine (Namenda) 10 mg DAILY ORAL 01/16/17 09:00 02/14/17 08:59 01/16/17 08:48 Mirtazapine (Remeron) 15 mg BEDTIME ORAL 01/15/17 21:00 02/13/17 20:59 01/15/17 21:01 Multivitamins Therapeutic (Therapeutic Multivitamin) 1 ea DAILY ORAL 01/16/17 09:00 02/14/17 08:59 01/16/17 08:47 Pantoprazole (Protonix) 40 mg DAILY IVP 01/16/17 09:00 02/14/17 08:59 01/16/17 08:47 Piperacillin/ Tazobactam/ Dextrose 50 ml @ 12.5 mls/hr Q8H IVPB 01/16/17 16:00 01/23/17 15:59 Vancomycin HCl (Vanco rx to dose) 1 ea DAILY PRN MISC Per rx protocol 01/16/17 14:45 02/15/17 14:44 Vancomycin/Sodium Chloride 250 ml @ 166.667 mls/hr Q24H IVPB 01/16/17 15:00 01/21/17 14:59 Vitamin B Complex/ Vit C/Folic Acid (Nephrovite) 1 tab DAILY ORAL 01/16/17 09:00 02/15/17 08:59 01/16/17 08:48 Skip Yan M.D. Jan 16, 2017 16:02
--- NOTE | 2017-01-16 16:16 | Cardiology Report ---
APPROVED REPORT EXAM: Two-dimensional and M-mode echocardiogram with Doppler and color Doppler. INDICATION Tachycardia Technically limited and difficult study due to poor acoustical windows. Patients position. Normal left ventricular chamber size, systolic function and wall motion. M-mode measurements not obtainable due to cardiac structure. Left ventricular ejection fraction estimated to be 55-60%. No evidence of left ventricular hypertrophy. No evidence of pericardial or pleural effusion. All other cardiac chamber sizes are within normal limits. Focal aortic valve sclerosis with adequate cusp excursion. Normal mitral valve leaflets with normal excursion. Normal mitral annulus and aortic root. Pulmonic valve not well visualized. Normal tricuspid valve structure. IVC is not obtainable. A color flow and spectral Doppler study was performed and revealed: No aortic regurgitation. No mitral regurgitation. Mitral diastolic velocities suggest reduced left ventricular relaxation c/w diastolic dysfunction grade 1. No tricuspid regurgitation.
[2017-01-16] MEDS: Vancomycin 750mg/NS 250ml IVPB SCH (16:42)
[2017-01-16] MEDS: Zosyn 3.375gm/50ml Premix 50 ML IVPB SCH (18:39)
[2017-01-16 20:00] VITALS: BP 122/78
[2017-01-16] MEDS: Depakote 500mg tab ORAL SCH (20:07)
--- NOTE | 2017-01-16 20:15 | Consultation ---
DATE OF CONSULTATION: 01/16/2017 INFECTIOUS DISEASE CONSULTATION REQUESTING PHYSICIAN: Maik Saenz M.D. REASON FOR CONSULTATION: Sepsis, aspiration pneumonia with shock, and recommendation for antibiotics treatment. HISTORY OF PRESENT ILLNESS: The patient is an 81-year-old male with past medical history significant for COPD, diabetes, dementia, and hypertension with pacemaker placement. He was brought in from detention to [facility] for worsening shortness of breath and altered mental status. The patient had extensive workup in the emergency room, which revealed evidence of pneumonia with patchy infiltrate on the right lower side suspicious for aspiration. The patient was found to be febrile with leukocytosis and renal failure due to sepsis and shock. He was started on IV fluid and pressor, given IV antibiotics, and admitted to the intensive care unit for further evaluation and management and I was consulted by the primary provider today for antibiotics treatment and further care for his pneumonia and septic shock. As of note, the patient is poor historian and cannot provide good history at this point. History was mainly obtained from the medical record and nursing staff. As per the medical record, the patient had multiple small skin breaks on his ankle and the sacrum area, which sounds to be stage II with some mild drainage and exudate on his sacral wound. PAST MEDICAL HISTORY: Significant for hypertension, COPD, diabetes, dementia, hypothyroidism, pacemaker placement, and gallstone. PAST SURGICAL HISTORY: He had pacemaker placement. MEDICATIONS: The patient initially received vancomycin, cefepime, and metronidazole in the emergency room, these were discontinued. For the rest of his medications, please refer to MAR. ALLERGIES: He has no known drug allergy. SOCIAL HISTORY: The patient lives at the detention at [facility]. No record of recent drugs, tobacco, or alcohol. FAMILY HISTORY: Unable to obtain. REVIEW OF SYSTEMS: Unable to obtain. The patient is a poor historian and cannot provide any history. PHYSICAL EXAMINATION: VITAL SIGNS: Temperature 97.2 degrees, pulse 72, respirations 16, blood pressure 123/70, and saturation 100% on room air. GENERAL: Elderly male, lying in bed, barely responsive. Does not follow commands. Open eyes spontaneously. Nonverbal. Not in acute distress. HEENT: Normocephalic and atraumatic. Pupils are reactive to light. Moist oral mucosa. No exudate. NECK: Supple. No lymphadenopathy. CARDIOVASCULAR: Regular rate and rhythm. No murmur. No gallop. LUNGS: He had crackles with diminished breathing sounds at the bases. No respiratory distress. ABDOMEN: Soft, nontender, and nondistended. Positive bowel sounds. No hepatosplenomegaly. No ascites. EXTREMITIES: Trace edema. No cyanosis. SKIN: He had multiple skin breaks on his ankles, heels, and sacral wound stage II with mild exudate, drainage, and skin erythema. LABORATORY DATA: Labs today showed BUN of 33, creatinine of 1.5, and glucose of 245. White count of 7.4, hemoglobin of 8.9, hematocrit of 32.2, and platelet count of 116. Urinalysis showed 0 to 2 red blood cell count, 5 to 10 hyaline casts, and moderate amount of mucus with negative nitrite and leukocyte esterase. Microbiology, blood culture x2 on 01/14/2017 negative to date. Naris MRSA swab positive. VRE rectum positive. Influenza A and B antigen negative both. IMAGING: Chest x-ray on admission showed bilateral diffuse patchy interstitial and alveolar infiltrates and left basilar atelectases. Venous Doppler of the lower extremity showed patent deep vein system bilaterally with no evidence of thrombus within the femoral, popliteal, or tibial segment. ASSESSMENT AND RECOMMENDATION: 1. Aspiration pneumonia. We will start the patient on Zosyn and vancomycin. Monitor chest x-ray. Recommend swallow evaluation to rule out aspiration. 2. Severe sepsis with shock, status post pressors. We will start vancomycin and Zosyn antibiotics coverage empirically pending his blood culture. We will repeat another set of blood culture. Continue hydration. Monitor blood pressure in the telemetry unit. Source most likely his pneumonia. 3. Respiratory failure due to the above, improving. Continue oxygen monitor and chest x-ray. 4. Diabetes. Recommend tight glycemic control to keep blood glucose between 80 to 120. 5. Altered mental status due to sepsis, improving. Monitor in telemetry unit. Consider neurologic consult. 6. Renal failure. Acute on chronic due to septic shock. Continue hydration. Monitor urine output and renal function. Nephrology team is following. Thank you for the consult. Skip Yan M.D. DR: Diya JOB#: [id number] CC:
--- NOTE | 2017-01-16 23:20 | Nephrology Progress Note ---
Assessment/Plan Problem List: (1) Severe sepsis (2) Aspiration pneumonia (3) Hypernatremia (4) Dementia (5) Respiratory failure (6) Altered mental status Plan cont d5w. renal fxn improving. cont to monitor. iv abx per id rec. Subjective Subjective events noted. appears comfortable. Objective Objective Last 24 Hour Vital Signs Date Time Temp Pulse Resp B/P (MAP) Pulse Ox O2 Delivery O2 Flow Rate FiO2 01/16/17 20:00 75 01/16/17 20:00 98.4 73 122/78 98 Nasal Cannula 2.0 01/16/17 19:40 75 18 100 Room Air 01/16/17 19:28 97 Nasal Cannula 2.0 28 01/16/17 19:28 77 18 97 Nasal Cannula 2.0 01/16/17 19:28 Nasal Cannula 2.0 28 01/16/17 19:00 92 Nasal Cannula 2.0 01/16/17 15:50 97.2 72 16 123/70 100 Room Air 01/16/17 15:46 73 01/16/17 13:35 77 18 100 Room Air 01/16/17 13:25 71 18 100 Room Air 01/16/17 12:15 71 01/16/17 12:00 97.8 72 18 150/72 100 Room Air 01/16/17 07:50 98.0 74 16 153/86 100 Room Air 01/16/17 07:48 74 16 100 Room Air 01/16/17 07:46 74 01/16/17 07:38 76 16 100 Room Air 01/16/17 07:36 Room Air 01/16/17 07:35 100 Room Air 01/16/17 04:00 98.2 65 16 132/56 96 Room Air 01/16/17 03:44 75 01/16/17 01:56 80 18 98 Room Air 21 01/16/17 01:47 78 18 98 Room Air 21 01/16/17 00:00 75 01/15/17 23:52 98.4 76 16 151/76 99 Room Air Intake and Output 01/16/17 01/17/17 19:00 07:00 Intake Total 1183.600 ml Output Total 500 ml Balance 683.600 ml IV Total 1183.600 ml Output Urine Total 500 ml Laboratory Tests 01/16/17 03:00: White Blood Count 10.6, Red Blood Count 2.62L, Hemoglobin 6.8*L, Hematocrit 22.0L, Mean Corpuscular Volume 84, Mean Corpuscular Hemoglobin 25.8L, Mean Corpuscular Hemoglobin Concent 30.7L, Red Cell Distribution Width 15.8H, Platelet Count 193, Mean Platelet Volume 8.3, Neutrophils (%) (Auto) , Lymphocytes (%) (Auto) , Monocytes (%) (Auto) , Eosinophils (%) (Auto) , Basophils (%) (Auto) , Differential Total Cells Counted 100, Neutrophils % ( Manual) 83H, Lymphocytes % (Manual) 11L, Monocytes % (Manual) 4, Eosinophils % ( Manual) 2, Basophils % (Manual) 0, Band Neutrophils 0, Platelet Estimate Adequate, Platelet Morphology Normal, Sodium Level 151H, Potassium Level 3.6, Chloride Level 119H, Carbon Dioxide Level 19L, Anion Gap 13, Blood Urea Nitrogen 33H, Creatinine 1.5H, Estimat Glomerular Filtration Rate , Glucose Level 245H, Calcium Level 8.3L, Pro-B-Type Natriuretic Peptide 4680H 01/16/17 09:30: White Blood Count 7.4, Red Blood Count 3.83L, Hemoglobin 8.9#L, Hematocrit 32.2# L, Mean Corpuscular Volume 84, Mean Corpuscular Hemoglobin 23.3L, Mean Corpuscular Hemoglobin Concent 27.7L, Red Cell Distribution Width 15.6H, Platelet Count 116L, Mean Platelet Volume 7.0, Neutrophils (%) (Auto) 82.7H, Lymphocytes (%) (Auto) 12.1L, Monocytes (%) (Auto) 3.4, Eosinophils (%) (Auto) 0.8, Basophils (%) (Auto) 0.9 Height (Feet): 5 Height (Inches): 10.00 Weight (Pounds): 140 General Appearance: no apparent distress Cardiovascular: regularly irregular Respiratory/Chest: decreased breath sounds Abdomen: non tender, soft Extremities: trace edema CAMERON ELDER Jan 16, 2017 23:20
[2017-01-17] VITALS: BP 136/65
[2017-01-17] MEDS: Zosyn 3.375gm/50ml Premix 50 ML IVPB SCH ×3 (00:52→16:07)
[2017-01-17] MEDS: Albuterol/Ipratropium 3ml neb HHN SCH ×4 (01:37→19:20)
[2017-01-17 04:00] VITALS: BP 133/49
[2017-01-17] MEDS: Levothyroxine 25mcg tab ORAL SCH (05:15)
[2017-01-17] MEDS: NovoLOG Insulin Flexpen SUBQ SCH ×3 (05:17→16:42)
[2017-01-17 08:00] VITALS: BP 148/84
[2017-01-17] MEDS: Pantoprazole Inj IVP SCH (09:22)
[2017-01-17] MEDS: Nephrovite tab (Rena-Vite) ORAL SCH (09:22)
[2017-01-17] MEDS: Multivitamin w/Minerals tab ORAL SCH (09:22)
[2017-01-17] MEDS: Memantine 10mg tab ORAL SCH (09:22)
--- NOTE | 2017-01-17 10:36 | Diagnostic Imaging Report ---
Indication: Acute renal failure Technique: Grayscale and duplex images of the kidneys, retroperitoneum, and bladder were obtained. Comparison:None Findings: Right kidney measures 8.4 cm in length. Left kidney measures 9.2 cm in length. Both kidneys demonstrate equivocally slightly increased echogenicity. No hydronephrosis. Left kidney demonstrates a 7 mm cyst. Normal inferior vena cava. Bladder is empty, contains a Lambert catheter. Impression: Negative for hydronephrosis. Equivocally slightly increased renal echogenicity, if real could indicate medical renal disease Empty bladder with a Lambert catheter Incidental finding tiny left renal cyst.
[2017-01-17 12:00] VITALS: BP 148/84
--- NOTE | 2017-01-17 12:42 | Cardiac Electrophysiology PN ---
Assessment/Plan Assessment/Plan 1. Elevated troponin of 0.07. Likely due to renal failure and severe dehydration. Repeat troponin was negative. EF 55%. EKG is SR with complete left bundle-branch block. 2. Status post pacemaker. Brand of the pacemaker still not clear. Per family it hasn't been checked for 7 years! It is not [employer]. May be [employer]. Will recheck. 3. Severe dehydration and hypernatremia with sodium 167 on D5W improving to [address] Saenz. 4. Renal failure. BUN of 64 and creatinine 2.4. Again, on IV fluids getting better. 5. Dementia. 6. Altered mental status. 7. Elevated BNP. PO RN Subjective Subjective On NINOSKA. Pacer interrogation attempt showed that it was NOT a [employer] device. Objective Last 24 Hour Vital Signs Date Time Temp Pulse Resp B/P (MAP) Pulse Ox O2 Delivery O2 Flow Rate FiO2 01/17/17 08:00 82 01/17/17 08:00 98.0 86 20 148/84 99 Room Air 01/17/17 07:27 78 18 100 Room Air 01/17/17 07:21 Nasal Cannula 2.0 01/17/17 07:20 100 Nasal Cannula 2.0 01/17/17 07:20 79 18 100 Nasal Cannula 2.0 01/17/17 04:00 98.3 70 133/49 100 Nasal Cannula 2.0 01/17/17 04:00 67 01/17/17 01:52 71 18 100 Room Air 01/17/17 01:37 70 18 100 Nasal Cannula 2.0 01/17/17 00:00 70 01/17/17 00:00 98.0 75 136/65 100 Nasal Cannula 2.0 01/16/17 20:00 75 01/16/17 20:00 98.4 73 122/78 98 Nasal Cannula 2.0 01/16/17 19:40 75 18 100 Room Air 01/16/17 19:28 97 Nasal Cannula 2.0 01/16/17 19:28 77 18 97 Nasal Cannula 2.0 01/16/17 19:28 Nasal Cannula 2.0 01/16/17 19:00 92 Nasal Cannula 2.0 01/16/17 15:50 97.2 72 16 123/70 100 Room Air 01/16/17 15:46 73 01/16/17 13:35 77 18 100 Room Air 01/16/17 13:25 71 18 100 Room Air Microbiology Date/Time Source Procedure Growth Status 01/14/17 15:30 Nasal Nares Influenza Types A,B Antigen (LEDA) - Final Complete Objective HEAD AND NECK: Shows no JVD. LUNGS: Decreased breath sounds. CARDIOVASCULAR: Regular S1 and S2 with no gallop.Pacer left subclavian area. ABDOMEN: Soft. EXTREMITIES: No edema. He has ulcer of his heel. SERGE COVARRUBIAS Jan 17, 2017 12:42
[2017-01-17] MEDS ORDERED: Tubing IV Secondary IV ONE ×2 (14:13→19:59)
[2017-01-17] MEDS: Vancomycin 750mg/NS 250ml IVPB SCH (15:25)
[2017-01-17 16:00] VITALS: BP 143/71
--- NOTE | 2017-01-17 16:16 | Infectious Diseases Prog Note ---
Assessment/Plan Problems: (1) Aspiration pneumonia Assessment & Plan: continue zosyn and vancomycin, monitor CXR, recommend swallow eval to rule out aspiration , will need 10 days of antibiotics (2) Severe sepsis Assessment & Plan: with shock, S/P pressors, now on vancomycin and zosyn , repeated blood culture is negative , continue hydration , monitor culture (3) Respiratory failure Assessment & Plan: due to the above, improving, continue oxygen, monitor CXR (4) Diabetes Assessment & Plan: recommend tight glycemic control to keep blood glucose between 80-120 (5) Altered mental status Assessment & Plan: due to sepsis, improving, monitor in tele, consider neuro consult (6) Renal failure (ARF), acute on chronic Assessment & Plan: due to septic shock, continue hydration, monitor urine output, and renal function Subjective ROS Limited/Unobtainable: Yes Allergies: Coded Allergies: No Known Allergies (Unverified , 09/13/14) Subjective he was more awake and responsive today, denied any cough or SOB, no nausea or vomiting, dosen't follow commands well . Objective Vital Signs Last 24 Hour Vital Signs Date Time Temp Pulse Resp B/P (MAP) Pulse Ox O2 Delivery O2 Flow Rate FiO2 01/17/17 13:07 69 20 97 Room Air 01/17/17 12:58 76 20 98 Room Air 21 01/17/17 12:00 97.8 77 21 148/84 99 Room Air 01/17/17 12:00 79 01/17/17 08:00 82 01/17/17 08:00 98.0 86 20 148/84 99 Room Air 01/17/17 07:27 78 18 100 Room Air 01/17/17 07:21 Nasal Cannula 2.0 28 01/17/17 07:20 100 Nasal Cannula 2.0 28 01/17/17 07:20 79 18 100 Nasal Cannula 2.0 28 01/17/17 04:00 98.3 70 133/49 100 Nasal Cannula 2.0 01/17/17 04:00 67 01/17/17 01:52 71 18 100 Room Air 01/17/17 01:37 70 18 100 Nasal Cannula 2.0 01/17/17 00:00 70 01/17/17 00:00 98.0 75 136/65 100 Nasal Cannula 2.0 01/16/17 20:00 75 01/16/17 20:00 98.4 73 122/78 98 Nasal Cannula 2.0 01/16/17 19:40 75 18 100 Room Air 01/16/17 19:28 97 Nasal Cannula 2.0 28 01/16/17 19:28 77 18 97 Nasal Cannula 2.0 01/16/17 19:28 Nasal Cannula 2.0 28 01/16/17 19:00 92 Nasal Cannula 2.0 Height (Feet): 5 Height (Inches): 10.00 Weight (Pounds): 140 General Appearance: WD/WN, no acute distress, cachetic HEENT: normocephalic, atraumatic, anicteric, mucous membranes moist, supple, no JVD Respiratory/Chest: chest wall non-tender, no respiratory distress, no accessory muscle use, decreased breath sounds, crackles/rales Cardiovascular: normal peripheral pulses, normal rate, regular rhythm, no gallop/murmur, no JVD Abdomen: normal bowel sounds, soft, non tender, no organomegaly, non distended , no mass, no scars Extremities: no cyanosis, no clubbing Skin: no rash, no lesions, no ulcers Neurologic/Psychiatric: alert Lymphatic: no neck adenopathy, no groin adenopathy Current Medications Medications (Trade) Dose Ordered Sig/Huma Route PRN Reason Start Time Stop Time Status Last Admin Dose Admin Acetaminophen (Tylenol) 650 mg Q4H PRN ORAL FEVER 01/15/17 23:00 02/13/17 10:59 Albuterol/ Ipratropium (Albuterol/ Ipratropium) 3 ml Q6HRT HHN 01/16/17 01:00 01/20/17 07:59 01/17/17 12:58 Dextrose 1,000 ml @ 125 mls/hr Q8H IV 01/15/17 20:00 02/14/17 19:59 01/17/17 12:05 Dextrose (Dextrose 50%) STAT PRN IV Hypoglycemia 01/16/17 11:00 02/13/17 10:59 01/17/17 00:28 Divalproex Sodium (Depakote) 250 mg BID ORAL 01/16/17 09:00 02/13/17 17:59 01/17/17 09:23 Divalproex Sodium (Depakote) 500 mg QHS ORAL 01/15/17 21:00 02/13/17 20:59 01/16/17 20:07 Epoetin Norris (Procrit (for non ESRD use)) 5,000 units FRI-FRI-FRI SUBQ 01/15/17 21:00 02/14/17 20:59 01/15/17 21:25 Insulin Aspart (NovoLOG) BEFORE MEALS AND HS SUBQ 01/15/17 21:00 02/13/17 16:29 01/17/17 12:03 Levothyroxine Sodium (Synthroid) 25 mcg DAILY@0630 ORAL 01/16/17 06:30 02/15/17 06:29 01/17/17 05:15 Lorazepam (Ativan 2mg/ml 1ml) 1 mg Q6H PRN IV For Anxiety 01/15/17 21:15 01/22/17 15:14 01/16/17 18:39 Memantine (Namenda) 10 mg DAILY ORAL 01/16/17 09:00 02/14/17 08:59 01/17/17 09:22 Mirtazapine (Remeron) 15 mg BEDTIME ORAL 01/15/17 21:00 02/13/17 20:59 01/16/17 20:07 Multivitamins Therapeutic (Therapeutic Multivitamin) 1 ea DAILY ORAL 01/16/17 09:00 02/14/17 08:59 01/17/17 09:22 Pantoprazole (Protonix) 40 mg DAILY IVP 01/16/17 09:00 02/14/17 08:59 01/17/17 09:22 Piperacillin/ Tazobactam/ Dextrose 50 ml @ 12.5 mls/hr Q8H IVPB 01/16/17 16:00 01/23/17 15:59 01/17/17 16:07 Vancomycin HCl (Vanco rx to dose) 1 ea DAILY PRN MISC Per rx protocol 01/16/17 14:45 02/15/17 14:44 Vancomycin/Sodium Chloride 250 ml @ 166.667 mls/hr Q24H IVPB 01/16/17 15:00 01/21/17 14:59 01/17/17 15:25 Vitamin B Complex/ Vit C/Folic Acid (Nephrovite) 1 tab DAILY ORAL 01/16/17 09:00 02/15/17 08:59 01/17/17 09:22 Skip Yan M.D. Jan 17, 2017 16:16
[2017-01-17] MEDS ORDERED: NS 275ml ONE (19:59)
[2017-01-17] MEDS ORDERED: Tubing Blood Filter IV ONE (19:59)
--- NOTE | 2017-01-20 09:57 | Discharge Summary ---
Discharge Summary Hospital Course Date of Admission Jan 14, 2017 at 06:56 Date of Discharge Jan 17, 2017 at 20:00 Admitting Diagnosis respiratory failure, pneumonia HPI José Andersen is a 81 year old male who was admitted on Jan 14, 2017 at 06:56 for Respiratory Failure,Pneumonia Hospital Course dc summary #[id number] Discharge Condition Upon Discharge: stable Discharge Disposition Patient was discharged to Acute Care Facility(02) Discharge Diagnoses: Discharge Instructions Discharge Instructions Special Instructions I have been assigned to complete a D/C Summary on this account. I was not involved in the patient management Erika Cardona NP ([place]) Jan 20, 2017 09:57
--- NOTE | 2017-01-21 01:45 | Discharge Summary 2 SIG ---
DATE OF ADMISSION: 01/14/2017 DATE OF DISCHARGE: 01/17/2017 BRIEF HISTORY: 81-year-old male was brought by paramedics after increased difficulty with breathing. The patient by himself was unable to provide any history due to dementia. At the [facility], it was noted that the patient was hypoxemic. The patient was started on supplemental oxygen. The patient had no prior history of lung problems. The patient was brought for evaluation. In the emergency department, chest x-ray was consistent with pneumonia. Sodium -167, BUN- 64, and creatinine -2.4. Elevated troponin- 0.07. EKG revealed intermediate pacing. Lactic acid - 6.0. Blood pressure- 75/40. He was febrile - 103.6. Patient was placed on 100% nonrebreathing mask. The patient was diagnosed with severe sepsis, septic shock, pneumonia, hypernatremia, renal failure and was admitted for further management. HOSPITAL COURSE: The patient was admitted. Blood pressure responded to intravenous bolus of fluids. Blood pressure subsequently improved. ABG on 100% nonrebreathing mask was stable. The patient subsequently improved, did not require any intubation. The patient was started on empiric antibiotics. ID closely followed. Supplemental oxygen and pulmonary toilet provided as needed. Chest x-ray consistent with evidence of pneumonia. Route Delivery Service Driver closely followed. Route Delivery Service Driver stated that first troponin elevation was likely secondary to renal failure. Next troponin on the next day was within normal limits. Echocardiogram revealed preserved ejection fraction of 55%. EKG showed sinus rhythm with a left bundle-branch block. The patient status post pacemaker implantation, however, brand of pacemaker was not clear. The patient will need interrogation of the pacemaker as per commercial loan assistant. Sodium was improving, down to 151. BUN and creatinine improving, BUN from initial 64 down to 33 and creatinine from 2.4 down to 1.5. Blood culture negative. Influenza screen negative. Renal ultrasound revealed no hydronephrosis, slightly increased renal echogenicity could be indicative of medical renal disease. The patient was noted to have elevated proBNP; however, per commercial loan assistant, no diuresis as the patient was severely dehydrated and actually needed IV fluids. Wound care nurse had seen the patient for multiple deep tissue injuries present on admission. Wound care provided as per wound care nurse recommendation. The patient also had left sacral decubitus stage 2 present on admission. Blood sugar was managed with sliding scale of insulin. Hemoglobin A1c- 8.4, not at goal. The patient was clinically improving, but required further close management. Fever resolved, blood pressure stable, vital signs stable. Respiratory-branch, patient was able to be weaned to supplemental oxygen via nasal cannula. The patient required transfer to long-term hospital for further management. Transfer was arranged. The patient was discharged on 01/17/2017, FINAL DIAGNOSES: 1. Severe sepsis. 2. Septic shock. 3. Acute respiratory failure secondary to sepsis and shock and pneumonia. 4. Aspiration pneumonia. 5. Renal failure, acute on chronic. 6. Dehydration, improved 7. Prerenal azotemia,improved 8. Diabetes mellitus. 9. Dementia. 10. Hypernatremia due to dehydration. 11. Left sacral decubitus stage 2, present on admission. 12. Multiple deep tissue injuries present on admission. DISCHARGE MEDICATIONS: List of medications was sent to accepting facility. DISCHARGE INSTRUCTIONS: The patient to follow up with medical doctor at the accepting facility. Maik Saenz M.D. I have been assigned to dictate discharge summary on this account and I was not involved in the patient's management. Erika MercadoOur Lady Of Lourdes Memorial HospitalHenrik, N.P. DR: DANUTA JOB#: [id number] CC: MARI
== END 2017-01-17 20:00 | DRG 871 ==
LOC: EDUNIT# 03:42 → EDBD 03:42 → EMR 03:54 → EDBEDREQ 06:37 → ICU 06:56 → 2W 01-15 19:11
PROC: 3E033XZ Introduction of Vasopressor into Peripheral Vein, Percutaneous Approach (ICD-10-PCS; principal; 2017-01-16)
DX: A41.9 Sepsis, unspecified organism (principal); R65.21 Severe sepsis with septic shock; J96.90 Respiratory failure, unspecified, unspecified whether with hypoxia or hypercapnia; J69.0 Pneumonitis due to inhalation of food and vomit; N17.9 Acute kidney failure, unspecified; E87.0 Hyperosmolality and hypernatremia; I13.0 Hypertensive heart and chronic kidney disease with heart failure and stage 1 through stage 4 chronic kidney disease, or unspecified chronic kidney disease; I50.9 Heart failure, unspecified; E86.0 Dehydration; F03.90 Unspecified dementia, unspecified severity, without behavioral disturbance, psychotic disturbance, mood disturbance, and anxiety; J44.9 Chronic obstructive pulmonary disease, unspecified; N18.9 Chronic kidney disease, unspecified; E11.22 Type 2 diabetes mellitus with diabetic chronic kidney disease; D64.9 Anemia, unspecified; E03.9 Hypothyroidism, unspecified; K21.9 Gastro-esophageal reflux disease without esophagitis; R62.7 Adult failure to thrive; Z95.0 Presence of cardiac pacemaker
CPT/HCPCS: 36415; 36600; 71010; 76775; 80048; 80053; 81003; 82550; 82553; 82803; 82962; 83036; 83605; 83735; 83880; 84100; 84439; 84443; 84484; 85007; 85025; 85610; 85730; 86710; 87040; 87070; 87081; 87181; 87205; 93005; 93306; 93970; 94640; 94660; 94664; 94760; J1815; J7620